=== PATIENT | male | born 1980 | race Caucasian/White ===

== ENCOUNTER 2022-10-12 18:04 | Emergency (ER) | payer BC, SELFPAY ==
--- NOTE | 2022-10-12 18:14 | ED.URI ---
HPI - URI/Sore Throat General Chief Complaint: Upper Respiratory Infection Stated Complaint: sorethroat,bilateral ear pain Time Seen by Provider: 10/12/22 18:20 Source: patient Mode of arrival: ambulatory Limitations: no limitations History of Present Illness HPI Narrative: Osvaldo is a 42-year-old male patient presenting to the clinic today with complaints of sore throat, headache, congestion, and bilateral ear pain x4 days. He denies any known fever or chills. MD elicited complaint: sore throat and nasal congestion Related Data Allergies Allergy/AdvReac Type Severity Reaction Status Date / Time No Known Allergies Allergy Unknown Verified 10/12/22 18:23 Review of Systems Review of Systems: Pertinent positives per HPI. Patient denies any fever, chills, rash, visual changes, dizziness, cough, shortness of breath, chest pain, palpitations, nausea, vomiting, diarrhea, constipation, abdominal pain, or any urinary issues. PMFSH Social History Social History Smoking status: Never smoker Alcohol intake: current Comments At the time of my signature, I reviewed and agree with the nursing past medical, surgical, social, and family history. There is no relevant family history pertinent to the patient complaint. Exam Narrative: General: Well-developed, well nourished, in no apparent distress Head: Normocephalic, atraumatic Eyes: Pupils equally round and reactive to light bilaterally, EOM intact, sclera and conjunctive clear, no discharge, lids normal Ears: TMs intact and dull, ear canals clear, no drainage, grossly hearing normal. Nose: Nares patent, clear nasal discharge, moderate inflammation, no sinus tenderness. Mouth: Oral pharynx without lesions or masses, good dentition, MMM. Oropharynx red Neck: Supple, trachea midline, mild enlargement of anterior cervical nodes, no thyroid masses or goiter palpable. Cardio: Regular rate and rhythm, s1 and s2 normal, no murmur appreciated. Resp: Clear to auscultation bilaterally, no rhonchi, rales, wheezing or rubs Course Course Emergency Course: Portions of this record may have been created with voice recognition software. Level of Care: Express Care Visit Vital Signs Vital signs: Vital Signs Temperature 36.9 C 10/12/22 18:19 Pulse Rate 97 10/12/22 18:19 Respiratory Rate 18 10/12/22 18:19 Blood Pressure 140/98 H 10/12/22 18:19 Pulse Oximetry 98 10/12/22 18:19 Oxygen Delivery Room Air 10/12/22 18:19 Temperature 36.9 C 10/12/22 18:19 Pulse Rate 97 10/12/22 18:19 Respiratory Rate 18 10/12/22 18:19 Blood Pressure 140/98 H 10/12/22 18:19 Pulse Oximetry 98 10/12/22 18:19 Oxygen Delivery Room Air 10/12/22 18:19 Vital signs reviewed MDM - URI/Sore Throat MDM Narrative Medical decision making narrative: At the time of visit patient is resting comfortably on the exam table. COVID and strep test were negative in the clinic today. Prescription for prednisone was sent to the pharmacy to help with eustachian tube dysfunction and the congestion. Supportive measures were discussed with the patient he voiced understanding discharge instructions and agrees to treatment plan. Differential Diagnosis Differential diagnosis: Likely upper respiratory infection, otitis media, sinusitis, viral infection, bronchitis, influenza, pharyngitis and other (COVID) Lab Data Labs: Lab Results 10/12/22 Range/Units 18:15 POC SARS CoV-2 Ag Pending Strep Screen Presumptive Negative *(Reference Range: Negative)* Discharge Plan Discharge Clinical Impression: Acute upper respiratory infection, Acute dysfunction of both eustachian tubes, Pharyngitis Patient Disposition: Home, Self-Care Condition: Stable Instructions: Antibiotic Form, Pharyngitis (ED), Upper Respiratory Infection (ED), Earache (ED), Viral Syndrome (ED
[2022-10-12 18:19] VITALS: BP 140/98; PULSE 97; RESP 18; TEMP 36.9; O2SAT 98
== END 2022-10-12 18:51 | disposition home or self-care (01) ==
PROVIDERS: Emergency Provider Nurse Practitioner Family
DX: J06.9 Acute upper respiratory infection, unspecified (principal); J02.9 Acute pharyngitis, unspecified; H69.93 Unspecified Eustachian tube disorder, bilateral; Z20.822 Contact with and (suspected) exposure to COVID-19; E78.00 Pure hypercholesterolemia, unspecified
CPT/HCPCS: 87081; 87426; 87880; 99213; C9803; G0463

== ENCOUNTER 2024-08-06 14:51 | Emergency (ER) | payer BC, SELFPAY ==
[2024-08-06 15:10] VITALS: BP 147/94; PULSE 119; RESP 20; TEMP 37.1; O2SAT 98
--- NOTE | 2024-08-06 15:37 | ED_ITS ---
HPI - General Adult General Chief complaint: Upper Respiratory Infection Stated complaint: sinus infection/ bilateral Ear Pain/ Cough Time Seen by Provider: 08/06/24 15:37 Source: patient Mode of arrival: ambulatory Limitations: no limitations History of Present Illness HPI narrative: 44-year-old male patient presents to the [facility] with complaints of sinus pressure and cold symptoms that has been going on for at least 3 weeks. Patient denies fevers, body aches or chills. Patient states he gets sinus infections about once a year and states that he has tried some [id number] antihistamines, decongestants, nasal rinses and nasal spray and nothing has helped. Denies any chest pain or shortness of breath. Patient states has an intermittent cough. Mostly complains of pressure behind the eyes and in the nose. Related Data Allergies Allergy/AdvReac Type Severity Reaction Status Date / Time No Known Allergies Allergy Unknown Verified 08/06/24 15:16 Review of Systems Review of Systems: CONSTITUTIONAL: Denies fever, chills, or sweats. EYES: Denies visual changes, redness, or discharge. ENT: Positive rhinorrhea, congestion, denies sore throat, positive bilateral otalgia. CARDIOVASCULAR: Denies chest pain, palpitations, or edema. RESPIRATORY: positive cough , denies dyspnea. GASTROINTESTINAL: Denies abdominal pain, nausea, vomiting, or diarrhea. GENITOURINARY: Denies dysuria or hematuria. SKIN: Denies rash or itching. MUSCULOSKELETAL: Denies back pain, joint pain, or myalgia. NEUROLOGIC: positive headache, denies numbness, or weakness. PSYCHIATRIC: Denies anxiety or depression. PMFSH Social History Social History Smoking status: Never smoker Alcohol intake: current Comments At the time of my signature I agree with nursing past medical history, surgical, social, and family history. There is no relevant family history pertinent to the presenting complaint. Exam Narrative: GENERAL: Well-appearing, well-nourished, and in no acute distress. HEAD: Normocephalic, atraumatic. EYES: PERRLA and EOMI. ENT: Nares with erythema edema noted bilaterally, no rhinorrhea or epistaxis. Mucous membranes moist. posterior pharynx with postnasal drip present. Bilateral TMs are clear no erythema foreign bodies canal. Slight fluid noted behind TMs. NECK: Supple. No lymphadenopathy CHEST: Clear to auscultation. No respiratory distress. Patient able talk in clear complete sentences. HEART: Regular rate and rhythm. No murmur heard. Normal peripheral pulses. ABDOMEN: Soft, nontender, nondistended, normal active bowel sounds. EXTREMITIES: Normal range of motion. No edema. SKIN: Warm, dry, no rash. NEURO: No focal deficits. Alert and oriented x3. Course Course Level of Care: Express Care Visit Vital Signs Vital signs: Vital Signs Temperature 37.1 C 08/06/24 15:10 Pulse Rate 119 H 08/06/24 15:10 Respiratory Rate 20 08/06/24 15:10 Blood Pressure 147/94 H 08/06/24 15:10 Pulse Oximetry 98 08/06/24 15:10 Oxygen Delivery Room Air 08/06/24 15:10 Temperature 37.1 C 08/06/24 15:10 Pulse Rate 119 H 08/06/24 15:10 Respiratory Rate 20 08/06/24 15:10 Blood Pressure 147/94 H 08/06/24 15:10 Pulse Oximetry 98 08/06/24 15:10 Oxygen Delivery Room Air 08/06/24 15:10 vital signs reviewed. The patient has been informed that they may have pre-hypertension or Hypertension based on a BP reading in the department. I recommend that the patient call the primary care provider listed on their discharge instructions or a physician of their choice this week to arrange follow up for further evaluation of possible pre-hypertension or Hypertension Medical Decision Making MDM Narrative Medical decision making narrative: Plan of care patient is discharged home with the oral antibiotic and steroids along with Tessalon Perles for symptoms. We are going to treat with antibiotics today since patient has had symptoms for longer than 2 weeks. Discussed with patient if he continues to have ongoing symptoms he would need to see his primary doctor for further evaluation treatment. Patient verbalized understanding denies any other questions or concerns at this time. Differential Diagnosis Differential Diagnosis: Differential diagnosis: Allergic rhinitis, chronic sinusitis, tonsillitis, acute sinusitis, infectious mononucleosis, seasonal influenza, pertussis, diphtheria, meningococcal disease, viral syndrome, viral bronchitis, RSV, COVID- 19 Vital Signs Vital Signs: Vital Signs Temperature 37.1 C 08/06/24 15:10 Pulse Rate 119 H 08/06/24 15:10 Respiratory Rate 20 08/06/24 15:10 Blood Pressure 147/94 H 08/06/24 15:10 Pulse Oximetry 98 08/06/24 15:10 Oxygen Delivery Room Air 08/06/24 15:10 Temperature 37.1 C 08/06/24 15:10 Pulse Rate 119 H 08/06/24 15:10 Respiratory Rate 20 08/06/24 15:10 Blood Pressure 147/94 H 08/06/24 15:10 Pulse Oximetry 98 08/06/24 15:10 Oxygen Delivery Room Air 08/06/24 15:10 Critical Care Time Critical Care Time Critical Care Time: No Discharge Plan Discharge Clinical Impression: Acute rhinosinusitis Patient Disposition: Home, Self-Care Condition: Stable Instructions: Antibiotic Form, Rhinosinusitis (ED) Additional Instructions: take antibiotic as directed. Please complete the entire course of antibiotics and the symptoms do not return. Recommend antihistamine such as Benadryl at night time and Claritin/Zyrtec/Larissa during the day Cough syrup may cause drowsiness; avoid driving or take it at night time. Take oral steroids in the morning with food. Side effects of oral steroids as it can cause hyper nystatin and decrease in sleeping. May take Benadryl to help with this. Also, recommend symptomatic treatment includes: rest, fluids, and increase humidity of the air at home. Recommend Acetaminophen or nonsteroidal anti-inflammatory agents (NSAIDs) as directed in the bottle to reduce fever and/pain/headache. Avoid smoking/second-hand smoke. Limit visits to areas with large crowds. Please schedule a follow-up visit with your personal physician for further evaluation and treatment within 3-5days. Including recheck and discussion of your blood pressure. If your symptoms persist, change or worsen significantly before you can contact your personal physician then please, without delay, go to the emergency department for further evaluation. Patient Language: Indonesian Prescriptions: New azithromycin 250 mg tablet See Rx Instructions .ROUTE .COMPLEX Qty: 6 0RF Rx Instructions: For 250 mg dose pack: take 500 mg today (day 1), then 250 mg for 4 days (days 2-5) prednisone 20 mg tablet 20 mg PO DAILY 5 Days Qty: 5 0RF benzonatate 200 mg capsule 200 mg PO TID PRN (Reason: cough) 10 Days Qty: 30 0RF No Action prednisone 20 mg tablet 40 mg PO DAILY 5 Days Qty: 10 0RF Follow-up/Referrals: PHYSICIAN,DERMATOLOGY SALES REPRESENTATIVE [Primary Care Provider] - Time of Disposition: 15:47
== END 2024-08-06 16:00 | disposition home or self-care (01) ==
PROVIDERS: Emergency Provider Nurse Practitioner Family
DX: J01.90 Acute sinusitis, unspecified (principal); E78.00 Pure hypercholesterolemia, unspecified
CPT/HCPCS: 99213; G0463